=== PATIENT | male | born 1970 | race Hispanic/Latino ===

== ENCOUNTER 2018-06-10 07:26 | Inpatient (IN) | payer OTHER ==
[~2018-06-10] VITALS: Ht 177.8 cm; Wt 85.9 kg
[2018-06-10] MEDS ORDERED: SODIUM CHLORIDE 0.9% 1000ML 1,000 ML IV STA (07:59)
[2018-06-10] MEDS ORDERED: ONDANSETRON HCL INJ 2 MG/ML VIAL IV STA (07:59)
[2018-06-10] MEDS ORDERED: HYDROMORPHONE 1MG/1ML INJ IV STA ×2 (07:59→10:03)
[2018-06-10] MEDS ORDERED: HYDROMORPHONE 2MG/ML 2 MG/ML ML IV NR (08:15)
[2018-06-10 08:25] LABS: BASOPHILS # (AUTO) 0.1 (0.0-0.1); BASOPHILS % 0.7 % (0.0-1.0); EOSINOPHILS # (AUTO) 0.3 (0.0-0.4); EOSINOPHILS % 2.7 % (0.0-6.0); HEMATOCRIT 39.7 % (38.2-49.6); HEMOGLOBIN 13.9 g/dL (14.0-18.0); LYMPHOCYTES # (AUTO) 1.8 (1.0-3.2); LYMPHOCYTES % 15.6 % (18.0-39.1); MEAN CORPUSCULAR HEMOGLOBIN 31.5 pg (28-32); MONOCYTES # (AUTO) 0.5 (0.2-0.8); MONOCYTES % 4.6 % (4.4-11.3); NEUTROPHILS # (AUTO) 8.6 (2.1-6.9); PLATELET COUNT 221 x10e3/uL (140-360); RED BLOOD COUNT 4.41 x10e6/uL (4.3-5.7)
[2018-06-10 08:45] LABS: ALANINE AMINOTRANSFERASE 18 IU/L (0-55); ALBUMIN 4.2 g/dL (3.5-5.0); ALBUMIN/GLOBULIN RATIO 1.6 (0.8-2.0); ALKALINE PHOSPHATASE 56 IU/L (40-150); ANION GAP 10.5 mmol/L (8-16); BLOOD UREA NITROGEN 15 mg/dL (7-26); BUN/CREATININE RATIO 18 (6-25); CALCIUM 8.9 mg/dL (8.4-10.2); CARBON DIOXIDE 25 mmol/L (22-29); CHLORIDE 106 mmol/L (98-107); CREATININE, SERUM 0.85 mg/dL (0.72-1.25); EST GLOMERULAR FILTRATION RATE > 60 ML/MIN (60-); GLUCOSE 136 mg/dL (74-118); POTASSIUM 3.5 mmol/L (3.5-5.1); SODIUM 138 mmol/L (136-145)
[2018-06-10 09:01] LABS: INR 0.87; PROTHROMBIN TIME 12.7 seconds (11.9-14.5)
[2018-06-10 09:02] LABS: PARTIAL THROMBOPLASTIN TIME 31.4 seconds (23.8-35.5)
[2018-06-10] MEDS ORDERED: MELOXICAM7.5 MG PO (09:34)
[2018-06-10] MEDS ORDERED: CYCLOBENZAPRINE10 MG PO (09:34)
[2018-06-10] MEDS ORDERED: IOPAMIDOL 370 MG/ML 200 ML INFUS..BTL INJ ONE (10:07)
[2018-06-10] MEDS ORDERED: SODIUM CHLORIDE 0.9% 250ML 250 ML ONE (10:07)
[2018-06-10] MEDS ORDERED: HYDROMORPHONE 2MG/ML 2 MG/ML ML IV ONE (10:15)
[2018-06-10 10:23] LABS: BILIRUBIN,URINE NEGATIVE (NEGATIVE); CLARITY,URINE SL CLOUDY (CLEAR); COLOR,URINE YELLOW (YELLOW); KETONES,URINE NEGATIVE (NEGATIVE); LEUKOCYTE ESTERASE ,URINE NEGATIVE (NEGATIVE); NITRITE,URINE NEGATIVE (NEGATIVE); PROTEIN,URINE DIPSTICK NEGATIVE (NEGATIVE); URINE UROBILINOGEN 0.2 mg/dL (0.2 - 1)
[2018-06-10 10:24] LABS: EPITHELIAL CELLS,URINE FEW /LPF
--- NOTE | 2018-06-10 12:01 | Diagnostic Imaging Report ---
CORRECTION Corrected on: 06/10/2018; Dictated by: EZEQUIEL SEWELL M.D. on 06/10/2018 at 12:16 Electronically approved by: EZEQUIEL SEWELL M.D. on 06/10/2018 at 12:16 This report includes an Addendum and supersedes previous reports for this exam. PROCEDURE: CT ABDOMEN & PELVIS W/WO CONTRAST TECHNIQUE: The abdomen and pelvis were scanned utilizing a multidetector helical scanner from the diaphragm to the lesser trochanter before and after the IV administration of 100 cc of Isovue 370 and the oral administration of 900 cc of water. Coronal and sagittal multiplanar reformations were obtained. COMPARISON: None. INDICATIONS: RIGHT FLANK PAIN, HEMATURIA FINDINGS: LOWER THORAX: Normal. HEPATOBILIARY: No focal hepatic lesions. No biliary ductal dilatation. SPLEEN: No splenomegaly. PANCREAS: No focal masses or ductal dilatation. ADRENALS: No adrenal nodules. KIDNEYS/URETERS: Large right lower pole renal mass measuring up to 10 x 8.6 x 7.2 cm (AP x TV x SI). The mass is heterogeneous with central hypodensity, suggestive of necrosis. The mass likely arises from the renal parenchyma (for example on axial post contrast series 6, image 100) rather than urothelial system. Delayed excretion of contrast into the right renal collecting system and pelvis, likely secondary to mass effect. There is right perinephric stranding. Subcentimeter right upper pole renal hypodensities are too small to characterize. No hydronephrosis or stones. No definite urothelial lesion on delayed images although portions of the ureters bilaterally are not opacified. PELVIC ORGANS/BLADDER: The bladder is unremarkable in appearance. PERITONEUM / RETROPERITONEUM: No free air or fluid. LYMPH NODES: No lymphadenopathy. VESSELS: Unremarkable. GI TRACT: No distention or wall thickening. Small hiatal hernia. BONES AND SOFT TISSUES: No acute bony findings. No suspicious lytic or blastic lesions. IMPRESSION: Large heterogeneous centrally necrotic mass arising from the right lower pole kidney, suspicious for renal cell carcinoma. Mild left perinephric stranding which could reflect inflammatory changes or tumor involvement. No specific evidence of metastatic disease in the abdomen or pelvis. Dictated by: EZEQUIEL SEWELL M.D. on 06/10/2018 at 12:10 Electronically approved by: EZEQUIEL SEWELL M.D. on 06/10/2018 at 12:10 ADDENDUM: Mild dilatation of the right renal pelvis secondary to mass effect from the mass. No significant calyceal dilatation to suggest hydronephrosis. In addition, the initial impression stated that there is left perinephric stranding, this is incorrect. There is RIGHT perinephric stranding, which could reflect inflammatory changes or potentially tumor involvement. Dictated by: EZEQUIEL SEWELL M.D. on 06/10/2018 at 12:14 Electronically approved by: EZEQUIEL SEWELL M.D. on 06/10/2018 at 12:14
[2018-06-10] MEDS ORDERED: KETOROLAC TROMETHAMINE 30 MG/ML VIAL IV STA (12:02)
[2018-06-10] MEDS ORDERED: KETOROLAC TROMETHAMINE 30 MG/ML VIAL ONE (12:28)
--- OUTSIDE RECORDS SUMMARY | 2018-06-10 13:12 | XMS REPORT ---
[facility] Address Unknown Phone Unavailable Care Team Providers Care Packer Name Role Phone Jourdan DARLING Unavailable Unavailable Problems This patient has no known problems. Allergies, Adverse Reactions, Alerts This patient has no known allergies or adverse reactions. Medications This patient has no known medications. Results Test Description Test Time Test Comments Text Results Atomic Results Result Comments CT ABDOMEN/PELVIS WOW 2018-06-10 12:16:00 [place] [address] Patient Name: VINH KENDALL MR #: [id number] : 1970 Age/Sex: 47/M Req #: [id number] Adm Physician: Ordered by: ARIES DARLING MD Report #: [id number] Location: ER Room/Bed: Procedure: [id number] CT/CT ABDOMEN/PELVIS WOW Exam Date: 06/10/18 Exam Time: 1020 REPORT STATUS: Signed CORRECTION Corrected on: 06/10/2018; Dictated by: EZEQUIEL SEWELL M.D. on 06/10/2018 at 12:16 Electronically approved by: EZEQUIEL SEWELL M.D. on 06/10/2018 at 12:16 This report includes an Addendum and supersedes previous reports for this exam. PROCEDURE: CT ABDOMEN PELVIS W/WO CONTRAST TECHNIQUE: The abdomen and pelvis were scanned utilizing a multidetector helical scanner from the diaph ragm to the lesser trochanter before and after the IV administration of 100 cc of Isovue 370 and the oral administration of 900 cc of water. Coronal and sagittal multiplanar reformations were obtained. COMPARISON: None. INDICATIONS: RIGHT FLANK PAIN, HEMATURIA FINDINGS: LOWER THORAX: Normal. HEPATOBILIARY: No focal hepatic lesions. No biliary ductal dilatation. SPLEEN: No splenomegaly. PANCREAS: No focal masses or ductal dilatation. ADRENALS: No adrenal nodules. KIDNEYS/URETERS: Large right lower pole renal mass measuring up to 10 x 8.6 x 7.2 cm (AP x TV x SI). The mass is heterogeneous with central hypodensity, suggestive of necrosis. The mass likely arises from the renal parenchyma (for example on axial post contrast series 6, image 100) rather than urothelial system. Delayed excretion of contrast into the right renal collecting system and pelvis, likely secondary to mass effect. There is right perinephric stranding. Subcentimeter right upper pole renal hypodensities are too small to characterize. No hydronephrosis or stones. No definite urothelial lesion on delayed images although portions of the ureters bilaterally are not opacified. PELVIC ORGANS/BLADDER: The bladder is unremarkable in appearance. PERITONEUM / RETROPERITONEUM: No free air or fluid. LYMPH NODES: No lymphadenopathy. VESSELS: Unremarkable. GI TRACT: No distention or wall thickening. Small hiatal hernia. BONES AND SOFT TISSUES: No acute bony findings. No suspicious lytic or blastic lesions. IMPRESSION: Large heterogeneous centrally necrotic mass arising from the right lower pole kidney, suspicious for renal cell carcinoma. Mild left perinephric stranding which could reflect inflammatory changes or tumor involvement. No specific evidence of metastatic disease in the abdomen or pelvis. Dictated by: EZEQUIEL SEWELL M.D. on 06/10/2018 at 12:10 Electronically approved by: MELLISA SEWELL M.D. on 06/10/2018 at 12:10 ADDENDUM: Mild dilatation of the right renal pelvis secondary to mass effect from the mass. No significant calyceal dilatation to suggest hydronephrosis. In addition, the initial impression stated that there is left perinephric stranding, this is incorrect. There is RIGHT perinephric stranding, which could reflect inflammatory changes or potentially tumor involvement. Dictated by: EZEQUIEL SEWELL M.D. on 06/10/2018 at 12:14 Electronically approved by: EZEQUIEL SEWELL M.D. on 06/10/2018 at 12:14 Dictated By: EZEQUIEL SEWELL MD [id number] Transcribed By: ADELA on 06/10/186 COPY TO: ARIES DARLING MD
[2018-06-10] MEDS ORDERED: HYDROMORPHONE 1MG/1ML INJ IV PRN (13:15)
[2018-06-10] MEDS ORDERED: ONDANSETRON HCL INJ 2 MG/ML VIAL IV PRN (13:15)
[2018-06-10] MEDS ORDERED: HYDROMORPHONE 2MG/ML 2 MG/ML ML IV PRN (13:15)
[2018-06-10] MEDS: SODIUM CHLORIDE 0.9% 1000ML 1,000 ML IV SCH ×2 (14:45→21:15)
--- NOTE | 2018-06-10 16:03 | Consultation ---
DATE OF CONSULTATION: June 10, 2018 UROLOGY CONSULTATION REASON FOR CONSULTATION: Hematuria and renal mass. HISTORY OF PRESENT ILLNESS: Nolbe Rivero is a 47-year-old man without any previous urological history. The patient actually had an appointment to see us in the office today. However, he had severe right-sided flank pain and reported to the emergency room instead. The patient was evaluated and found to have a large right renal mass, suspicious for renal cell carcinoma and he was subsequently admitted. The patient reports gross hematuria this morning. He denies other episodes of hematuria. He denies dysuria and denies urinary tract infections. He denies any ureterolithiasis. PAST MEDICAL AND SURGICAL HISTORY: Status post tonsillectomy. CURRENT MEDICATIONS: Normally none. ALLERGIES: NO KNOWN DRUG ALLERGIES. SOCIAL HISTORY: The patient smokes only when he drinks. He denies daily smoking, ethanol or drug use. The patient has supportive at the bedside. His occupation is [employer] work. REVIEW OF SYSTEMS: As discussed above in the history of present illness and past medical history, otherwise negative for all systems. PHYSICAL EXAMINATION GENERAL: A healthy-appearing 47-year-old man lying in bed in no apparent distress. He is currently afebrile. VITAL SIGNS: Currently stable. ABDOMEN: Soft, nondistended, nontender except slight right-sided costovertebral angle tenderness. Kidneys are not palpable without hepatosplenomegaly. No obvious evidence of hernia. GENITOURINARY: Testes descended bilaterally. Testes and epididymides bilaterally palpably normal. The patient has a normal, uncircumcised male phallus with normal meatus without any lesions. RECTAL: Digital rectal examination is deferred at the present time. For the remaining physical examination systems, please refer to the admission history and physical on the chart. LABORATORY DATA: CT scan of the abdomen and pelvis revealed a 10 cm x 8.6 cm x 7.2 cm necrotic heterogenous lower pole renal mass causing distortion of the collecting system. White blood cell count is 11,350. Hemoglobin low at 13.9. Platelets are normal at 221,000. The patient's creatinine is normal at 0.85. Urinalysis significant for 11-20 RBCs. ASSESSMENT 1. Right renal mass consistent with renal cell carcinoma. 2. Gross hematuria. 3. Right renal colic. 4. Leukocytosis . 5. Anemia. PLAN: 1. Admit for pain control. 2. The patient will need a right radical nephrectomy. Once the patient has adequate pain control, that procedure could potentially be done electively. Thank you very much for involving us in the care of your patient. I will be able to follow him along with you as well as an outpatient. Job#: [id number] cc:SON BURGESS M.D.
--- NOTE | 2018-06-10 16:15 | Diagnostic Imaging Report ---
EXAM: XR CHEST 2 VIEWS DATE: 06/10/2018 3:23 PM INDICATION: Renal mass COMPARISON: None FINDINGS: Lines and Tubes: None Heart and Mediastinum: No acute cardiomediastinal findings. Lungs and Pleura: No significant pleural effusion, pneumothorax, or focal consolidation. Bones and Soft Tissues: No acute findings. IMPRESSION: 1. No acute cardiopulmonary findings. If concern present for metastatic disease, CT chest would be recommended. Signed by: Dr. Tim Jordan MD on 06/10/2018 4:12 PM
[2018-06-10 21:30] VITALS: BP 123/74
[2018-06-11] VITALS (7 sets, daily range): BP systolic 116–157; BP diastolic 71–95
[2018-06-11] MEDS: SODIUM CHLORIDE 0.9% 1000ML 1,000 ML IV SCH ×2 (00:57→12:33)
[2018-06-11 05:15] LABS: BASOPHILS % 0.4 % (0.0-1.0); EOSINOPHILS # (AUTO) 0.1 (0.0-0.4); EOSINOPHILS % 1.3 % (0.0-6.0); HEMATOCRIT 35.3 % (38.2-49.6); HEMOGLOBIN 12.3 g/dL (14.0-18.0); LYMPHOCYTES % 23.9 % (18.0-39.1); MEAN CORPUSCULAR HEMOGLOBIN 31.5 pg (28-32); MEAN CORPUSCULAR HGB CONC 34.8 g/dL (31-35); MEAN CORPUSCULAR VOLUME 90.3 fL (81-99); MONOCYTES # (AUTO) 0.6 (0.2-0.8); MONOCYTES % 7.3 % (4.4-11.3); NEUTROPHILS # (AUTO) 5.6 (2.1-6.9); NEUTROPHILS % 66.7 % (38.7-80.0); PLATELET COUNT 198 x10e3/uL (140-360); RED BLOOD COUNT 3.91 x10e6/uL (4.3-5.7); RED CELL DISTRIBUTION WIDTH 12.4 % (11.7-14.4)
[2018-06-11 05:35] LABS: ANION GAP 11.7 mmol/L (8-16); BLOOD UREA NITROGEN 10 mg/dL (7-26); BUN/CREATININE RATIO 13 (6-25); CALCIUM 7.7 mg/dL (8.4-10.2); CARBON DIOXIDE 24 mmol/L (22-29); CHLORIDE 105 mmol/L (98-107); CREATININE, SERUM 0.79 mg/dL (0.72-1.25); EST GLOMERULAR FILTRATION RATE > 60 ML/MIN (60-); GLUCOSE 101 mg/dL (74-118); POTASSIUM 3.7 mmol/L (3.5-5.1); SODIUM 137 mmol/L (136-145)
[2018-06-11] MEDS ORDERED: HYDRALAZINE HCL 20 MG/ML VIAL IV PRN (08:00)
[2018-06-11] MEDS: FAMOTIDINE 20 MG TAB PO SCH ×2 (09:31→16:00)
[2018-06-11] MEDS: OYST-CAL-D 500MG TABLET PO SCH ×2 (09:31→16:00)
[2018-06-11] MEDS ORDERED: PEG (High)/E-LYTE SOLN 4,000 ML BTL PO NR (12:00)
--- NOTE | 2018-06-11 14:16 | Diagnostic Imaging Report ---
PROCEDURE: CT scan of the chest WITH intravenous contrast, using standard protocol. TECHNIQUE: The chest was scanned utilizing a multidetector helical scanner from the lung apex through the level of the adrenal glands after the IV administration of 100 cc of Isovue 370. Coronal and sagittal multiplanar reformations were obtained. COMPARISON: None. INDICATIONS: RENAL CARCINOMA, evaluate for lung metastasis FINDINGS: Lines/tubes: None. Lungs and Airways: No pulmonary nodules, masses, or consolidation. Airways are clear without endobronchial lesions. Pleura: The pleural spaces are clear. Heart and mediastinum: Thyroid is unremarkable. Mild cardiomegaly. No pericardial effusion. Aorta is non-aneurysmal. The main pulmonary artery is normal in caliber. Lymph nodes: The mediastinum, supraclavicular, or, internal mammary hilar, or axillary adenopathy. Abdomen: Limited contrast-enhanced views of the upper abdomen show no abnormality within the visualized liver, spleen, pancreas, or left kidney. Trace perinephric fluid in the right superior pole . The adrenal glands are unremarkable. Bones: No aggressive lytic or sclerotic lesions. Soft tissues are grossly unremarkable. IMPRESSION: 1. No evidence of metastatic disease in the thorax. 2. Mild cardiomegaly. 3. Trace perinephric fluid in the right superior pole. Theodore Churchill M.D. Dictated by: Theodore Churchill M.D. on 06/11/2018 at 14:25 Electronically approved by: Theodore Churchill M.D. on 06/11/2018 at 14:25
[2018-06-11] MEDS ORDERED: IOPAMIDOL 370 MG/ML 200 ML INFUS..BTL INJ ONE (17:07)
[2018-06-11] MEDS ORDERED: SODIUM CHLORIDE 0.9% 50ML 50 ML ONE (17:07)
[2018-06-11] MEDS ORDERED: DEXTROSE 50% SYRINGE 50 ML IV PRN ×2 (17:15)
[2018-06-11] MEDS ORDERED: INSULIN LISPRO 100 UNIT/1 ML 3ML VIAL SQ SCH ×2 (21:00)
[2018-06-12 00:16] VITALS: BP 147/96
[2018-06-12 04:00] VITALS: BP 154/90
[2018-06-12] MEDS: SODIUM CHLORIDE 0.9% 1000ML 1,000 ML IV SCH (05:02)
[2018-06-12 05:06] LABS: BASOPHILS % 0.6 % (0.0-1.0); EOSINOPHILS # (AUTO) 0.3 (0.0-0.4); EOSINOPHILS % 4.5 % (0.0-6.0); HEMATOCRIT 35.7 % (38.2-49.6); HEMOGLOBIN 12.3 g/dL (14.0-18.0); LYMPHOCYTES % 30.2 % (18.0-39.1); MEAN CORPUSCULAR HEMOGLOBIN 31.4 pg (28-32); MEAN CORPUSCULAR HGB CONC 34.5 g/dL (31-35); MEAN CORPUSCULAR VOLUME 91.1 fL (81-99); MONOCYTES # (AUTO) 0.6 (0.2-0.8); NEUTROPHILS # (AUTO) 3.7 (2.1-6.9); NEUTROPHILS % 55.5 % (38.7-80.0); PLATELET COUNT 189 x10e3/uL (140-360); RED BLOOD COUNT 3.92 x10e6/uL (4.3-5.7); RED CELL DISTRIBUTION WIDTH 12.1 % (11.7-14.4)
[2018-06-12 05:35] LABS: % IRON SATURATION 34 % (15-50); ANION GAP 13.5 mmol/L (8-16); BLOOD UREA NITROGEN 7 mg/dL (7-26); BUN/CREATININE RATIO 10 (6-25); CARBON DIOXIDE 24 mmol/L (22-29); CHLORIDE 104 mmol/L (98-107); CREATININE, SERUM 0.69 mg/dL (0.72-1.25); EST GLOMERULAR FILTRATION RATE > 60 ML/MIN (60-); GLUCOSE 93 mg/dL (74-118); IRON 88 ug/dL (65-175); MAGNESIUM 2.1 MG/DL (1.3-2.1); POTASSIUM 3.5 mmol/L (3.5-5.1); SODIUM 138 mmol/L (136-145); TOTAL IRON BINDING CAPACITY 259 ug/dL (261-478); TRANSFERRIN 185 mg/dL (174-364)
[2018-06-12 05:57] LABS: FERRITIN 250.89 ng/mL (21.81-274.66)
[2018-06-12 06:00] LABS: ALBUMIN 3.7 g/dL (3.5-5.0); BILIRUBIN,DIRECT 0.4 mg/dL (0.0-0.5)
[2018-06-12 07:03] LABS: FOLATE 18.1 ng/mL (7.0-15.4)
[2018-06-12] MEDS: FAMOTIDINE 20 MG TAB PO SCH ×2 (07:30→16:30)
[2018-06-12 07:48] VITALS: BP 140/91
[2018-06-12 07:53] VITALS: BP 140/91
[2018-06-12] MEDS ORDERED: CEFAZOLIN SOD 1 GM VIAL ONE (08:27)
[2018-06-12] MEDS: OYST-CAL-D 500MG TABLET PO SCH ×2 (09:00→17:00)
[2018-06-12] MEDS ORDERED: CEFAZOLIN SOD 2 GM/D5W 50ML 50 ML IV ONE (09:09)
[2018-06-12] MEDS ORDERED: IOPAMIDOL 610MG/1ML 300 MG/ML VIAL IV ONE ×2 (09:18→09:47)
[2018-06-12] MEDS ORDERED: HYDROMORPHONE 2MG/ML 2 MG/ML ML ONE (12:31)
[2018-06-12] MEDS: SODIUM CHLORIDE 0.9% 250ML IRRIG IR SCH ×3 (12:45→20:45)
[2018-06-12] MEDS ORDERED: NALOXONE HCL INJ 0.4 MG/ML AMP IV PRN (12:45)
[2018-06-12] MEDS ORDERED: ONDANSETRON HCL INJ 2 MG/ML VIAL IV PRN (12:45)
[2018-06-12] MEDS ORDERED: DIPHENHYDRAMINE HCL INJ 50 MG/ML VIAL IM PRN (12:45)
[2018-06-12] MEDS: MORPHINE SULFATE 1 MG/ML 30ML PCA IV PRN (13:12)
[2018-06-12] MEDS ORDERED: HYDRALAZINE HCL 20 MG/ML VIAL ONE (13:21)
[2018-06-12] MEDS ORDERED: CEFAZOLIN SOD 1 GM/D5W 50ML 50 ML IV SCH (14:00)
--- NOTE | 2018-06-12 14:15 | Diagnostic Imaging Report ---
ADDENDUM #1 Addendum: Addendum was requested by the referring physician Dr. Wakefield specifying size of the right pneumothorax. Small right apical pneumothorax, air gap approximately 1 cm. Findings were discussed by telephone with Dr. Wakefield's office at approximately 2:30 PM on 06/12/2018. Signed by: Dr. Nick Corcoran M.D. on 06/12/2018 2:45 PM ORIGINAL REPORT Examination: Single AP view of the chest. COMPARISON: None. INDICATION: Evaluate for pneumothorax DISCUSSION: Lines/tubes: None. Lungs: The lungs are well inflated and clear. No pneumonia or pulmonary edema. Pleura: Right pneumothorax and additional lucency along the mediastinal contour on the left. Heart and mediastinum: The heart and the mediastinum are unremarkable. Bones and soft tissues: No acute bony abnormalities. Lucency under the diaphragm extending across the midline. IMPRESSION: 1. Right pneumothorax. 2. Free abdominal air. Patient is postoperative from nephrectomy per the patient's floor nurse. Dr. Nguyen's PA Avery notified at 2:11pm Signed by: Dr. King Alvarez M.D. on 06/12/2018 2:12 PM
[2018-06-12] MEDS: D5.45%NS/KCL 20MEQ 1,000 ML IV SCH ×2 (16:46)
[2018-06-12] MEDS: DOCUSATE SODIUM 100 MG CAP PO SCH (17:00)
[2018-06-12] MEDS ORDERED: NEOSTIGMINE 5 MG/5ML SYR ONE (17:15)
[2018-06-12] MEDS ORDERED: ROCURONIUM BROMIDE 10 MG/ML 5ML VIAL ONE (17:15)
[2018-06-12] MEDS ORDERED: PROPOFOL IV EMULSION 10 MG/ML 20 ML VIAL ONE (17:15)
[2018-06-12] MEDS ORDERED: GLYCOPYRROLATE INJ 1MG/ 5 ML SYR ONE (17:15)
[2018-06-12] MEDS ORDERED: SEVOFLURANE INHAL SOLN 250 ML PEN BTL ONE (17:15)
[2018-06-12] MEDS ORDERED: ONDANSETRON HCL INJ 2 MG/ML VIAL ONE (17:15)
[2018-06-12] MEDS ORDERED: DEXAMETHASONE SOD PHOS INJ 4 MG/ML VIAL ONE (17:15)
[2018-06-12] MEDS ORDERED: LIDOCAINE HCL 2% LOCAL INJ 5 ML SDV VIAL INJ ONE (17:15)
[2018-06-12] MEDS ORDERED: MIDAZOLAM HCL 2 MG/2 ML VIAL ONE (17:27)
[2018-06-12] MEDS ORDERED: FENTANYL CITRATE/PF 100MCG/2 ML INJ ONE (17:27)
[2018-06-12] MEDS: CEFAZOLIN SOD 1 GM VIAL IV SCH (18:20)
[2018-06-12 20:29] VITALS: BP 147/88
[2018-06-13] VITALS (7 sets, daily range): BP systolic 107–159; BP diastolic 48–88
[2018-06-13] MEDS: CEFAZOLIN SOD 1 GM VIAL IV SCH ×3 (00:18→17:59)
[2018-06-13] MEDS: SODIUM CHLORIDE 0.9% 250ML IRRIG IR SCH ×6 (00:20→20:45)
[2018-06-13] MEDS: D5.45%NS/KCL 20MEQ 1,000 ML IV SCH (05:00)
[2018-06-13 05:21] LABS: BASOPHILS % 0.2 % (0.0-1.0); EOSINOPHILS % 0.2 % (0.0-6.0); HEMATOCRIT 37.4 % (38.2-49.6); HEMOGLOBIN 12.7 g/dL (14.0-18.0); LYMPHOCYTES # (AUTO) 1.5 (1.0-3.2); LYMPHOCYTES % 14.4 % (18.0-39.1); MEAN CORPUSCULAR HEMOGLOBIN 30.8 pg (28-32); MEAN CORPUSCULAR VOLUME 90.8 fL (81-99); MONOCYTES # (AUTO) 0.6 (0.2-0.8); MONOCYTES % 6.3 % (4.4-11.3); NEUTROPHILS # (AUTO) 7.9 (2.1-6.9); NEUTROPHILS % 78.6 % (38.7-80.0); PLATELET COUNT 197 x10e3/uL (140-360); RED BLOOD COUNT 4.12 x10e6/uL (4.3-5.7); RED CELL DISTRIBUTION WIDTH 12.2 % (11.7-14.4)
[2018-06-13 05:54] LABS: ANION GAP 10.6 mmol/L (8-16); BLOOD UREA NITROGEN 9 mg/dL (7-26); BUN/CREATININE RATIO 8 (6-25); CALCIUM 7.7 mg/dL (8.4-10.2); CARBON DIOXIDE 24 mmol/L (22-29); CHLORIDE 99 mmol/L (98-107); CREATININE, SERUM 1.06 mg/dL (0.72-1.25); EST GLOMERULAR FILTRATION RATE > 60 ML/MIN (60-); GLUCOSE 123 mg/dL (74-118); MAGNESIUM 1.8 MG/DL (1.3-2.1); POTASSIUM 3.6 mmol/L (3.5-5.1); SODIUM 130 mmol/L (136-145)
--- NOTE | 2018-06-13 07:27 | Operative Report ---
DATE OF PROCEDURE: June 12, 2018 PREOPERATIVE DIAGNOSES: 1. Large right renal mass consistent with renal cell carcinoma. 2. Gross hematuria. POSTOPERATIVE DIAGNOSES: 1. Large right renal mass consistent with renal cell carcinoma. 2. Gross hematuria. 3. 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 OPERATIONS PERFORMED: 1. Cystourethroscopy with calibration and dilation of urethral stricture located at the region of the external urinary sphincter. 2. Cystourethroscopy with bilateral ureteral catheterization and retrograde ureteropyelography (separate procedure performed for the hematuria). 3. Interpretation of retrograde ureteropyelography. 4. Supervision of fluoroscopy, no radiologist present. 5. Complicated right radical nephrectomy, made complicated by the large 10 cm tumor in the surrounding new vascularity. COPPER PLATE PRINTER: Dr. Reji Wakefield MD COMPLICATIONS: None. CLINICAL SUMMARY: Please refer to consultation from this hospitalization. OPERATIVE PROCEDURE IN DETAIL: Informed consent was verified. Noble Rivero was properly identified, taken to the operating room, and placed on the cystoscopy table in supine position. Anesthesia was uneventfully begun. The patient was then carefully and gently repositioned in a dorsal lithotomy position with all pressure points well padded. His genitalia were prepared and draped in the usual sterile fashion. The 21-Northern Irish cystoscope sheath with the visual obturator in place was atraumatically inserted into the patient's urethra. It was guided down the unremarkable distal urethra to the sphincteric region. There seemed to be some mild inflammation over the sphincteric region and sphincteric region was rather tight. We dilated it to the scope with the visual obturator in place. This may be a clinically significant stricture. There seemed to be minimal mucosal inflammation at that point. We went through the prostate bed, which was otherwise relatively unremarkable. We entered the patient's bladder where panendoscopy revealed no suspicious mucosal lesions, no tumors, no stones, no diverticula. Grade 1 trabeculations were noted. An 8-Northern Irish catheter was used to cannulate each ureter, and retrograde ureteral pyelograms were performed. Interpretation of retrograde ureteropyelography: Contrast was instilled in retrograde fashion bilaterally. On the left hand side, there were no tumors, no stones, no diverticula. Unobstructed drainage was observed fluoroscopically. On the right hand side, there was distortion of the collecting system by the large mass in the lower pole. The collecting system was stretched out, but there were no obvious mucosal lesions that could be appreciated. Unobstructed drainage was observed on the right hand side as well. The cystoscope was withdrawn. Caldwell catheter was placed. It was irrigated to and fro to ensure it worked properly. Digital rectal examination revealed relatively small 20 g prostate smooth, non-fluctuant, and without any nodules. Following cystoscopic portion of the procedure, the patient was carefully and gently transported across the lobo to the open operating room where he was carefully and gently repositioned in a flank position with all pressure points carefully well padded. His chest, abdomen, and back were shaved, prepared and draped in usual sterile fashion. A right flank incision was made, carried through all layers of the abdominal and chest wall. The 12th rib was rather sizable. As we resected the 12th rib posterolaterally, the pleura was unavoidably entered. Pleura was adherent to the posterior surface of that rib and was very thin and could not be . Once the rib was resected, we reapproximated the pleurotomy with 2-0 Vicryl suture in running fashion using anesthesia's help in hyperventilating and hyperinflating as well as the small red rubber catheter in order to evacuate the pneumothorax to the best of our ability. This pneumothorax was intentional as the pleura was adherent to the posterior surface of this larger than usual 12th rib. We carefully and gently isolated the kidney. We worked posteriorly. We found 2 large arterial branches that were doubly ligated and divided. We then identified 2 main renal vein branches, which we also doubly ligated and divided. We then were able to isolate the remainder of the kidney and eventually ligated and divided the ureter as well as all of their attachments, and specimen was removed from the field. The adrenal was not visualized within the specimen and we believed that it was preserved within the cephalad portion of Gerota's fascia. The nephrectomy was made more complicated by the large size of this tumor, which was 10 cm as measured by CT scanning. Copious irrigation was performed. We verified hemostasis. The patient's incision was then approximated in layers utilizing interrupted heavy Vicryl suture in figure-of-8 fashion, and the skin was approximated with skin seth. Sterile dressings were applied, and the patient was uneventfully reversed from anesthesia and taken to recovery room in stable condition. There were no complications to the procedure. He tolerated the procedure well. Plans will be to proceed with routine postoperative care and of course lifelong urological followup. Job#: [id number] cc: SON BURGESS M.D. MTDEdouard
[2018-06-13] MEDS: FAMOTIDINE 20 MG TAB PO SCH ×2 (07:30→16:30)
[2018-06-13] MEDS: DOCUSATE SODIUM 100 MG CAP PO SCH ×2 (09:00→17:00)
[2018-06-13] MEDS: OYST-CAL-D 500MG TABLET PO SCH ×2 (09:00→17:00)
[2018-06-13] MEDS: SODIUM CHLORIDE 0.9% 1000ML 1,000 ML IV SCH ×2 (09:00→19:00)
[2018-06-13] MEDS ORDERED: CALCIUM GLUCONATE 10% INJ 9.3 MEQ in SODIUM CHLORIDE 0.9% 100 ML 100 ML IV ONE (09:15)
--- NOTE | 2018-06-13 09:54 | Diagnostic Imaging Report ---
PROCEDURE: X-RAY CHEST, single VIEWS COMPARISON: 06/12/2018. INDICATIONS: R/O PTX FINDINGS: Enteric tube tip projects over the expected region of the gastric body. Small right apical pneumothorax has decreased in size compared to 06/12/2018, with air gap now 8 mm. No new consolidation or effusion. Postoperative pneumoperitoneum with multiple surgical clips projecting over the right paravertebral region of the upper lumbar spine. Surgical seth along the right flank. No acute osseous abnormality. CONCLUSION: Resolving small right apical pneumothorax. Persistent postoperative pneumoperitoneum status post right nephrectomy. Dictated by: Nick Corcoran M.D. on 06/13/2018 at 10:03 Electronically approved by: Nick Corcoran M.D. on 06/13/2018 at 10:03
[2018-06-13] MEDS: MORPHINE SULFATE 1 MG/ML 30ML PCA IV PRN (11:40)
[2018-06-13 14:45] LABS: BASOPHILS % 0.3 % (0.0-1.0); EOSINOPHILS # (AUTO) 0.1 (0.0-0.4); EOSINOPHILS % 0.6 % (0.0-6.0); HEMATOCRIT 37.3 % (38.2-49.6); HEMOGLOBIN 12.9 g/dL (14.0-18.0); LYMPHOCYTES # (AUTO) 1.2 (1.0-3.2); LYMPHOCYTES % 9.8 % (18.0-39.1); MEAN CORPUSCULAR HEMOGLOBIN 31.6 pg (28-32); MEAN CORPUSCULAR HGB CONC 34.6 g/dL (31-35); MEAN CORPUSCULAR VOLUME 91.4 fL (81-99); MONOCYTES # (AUTO) 0.9 (0.2-0.8); MONOCYTES % 7.1 % (4.4-11.3); NEUTROPHILS # (AUTO) 9.8 (2.1-6.9); NEUTROPHILS % 81.9 % (38.7-80.0); PLATELET COUNT 186 x10e3/uL (140-360); RED BLOOD COUNT 4.08 x10e6/uL (4.3-5.7); RED CELL DISTRIBUTION WIDTH 12.2 % (11.7-14.4)
[2018-06-13 15:10] LABS: ANION GAP 12.6 mmol/L (8-16); BLOOD UREA NITROGEN 8 mg/dL (7-26); BUN/CREATININE RATIO 7 (6-25); CALCIUM 8.1 mg/dL (8.4-10.2); CARBON DIOXIDE 22 mmol/L (22-29); CHLORIDE 98 mmol/L (98-107); EST GLOMERULAR FILTRATION RATE > 60 ML/MIN (60-); GLUCOSE 104 mg/dL (74-118); POTASSIUM 3.6 mmol/L (3.5-5.1); SODIUM 129 mmol/L (136-145)
[2018-06-13] MEDS: PIPER-TAZ 3.375 GM 50 ML IV SCH (22:00)
[2018-06-14] VITALS (7 sets, daily range): BP systolic 128–144; BP diastolic 70–84
[2018-06-14] MEDS: SODIUM CHLORIDE 0.9% 250ML IRRIG IR SCH ×4 (00:45→12:45)
[2018-06-14] MEDS: SODIUM CHLORIDE 0.9% 1000ML 1,000 ML IV SCH ×2 (04:45→13:46)
[2018-06-14 05:39] LABS: BASOPHILS # (AUTO) 0.1 (0.0-0.1); BASOPHILS % 0.4 % (0.0-1.0); EOSINOPHILS # (AUTO) 0.1 (0.0-0.4); EOSINOPHILS % 0.8 % (0.0-6.0); HEMATOCRIT 37.9 % (38.2-49.6); HEMOGLOBIN 12.8 g/dL (14.0-18.0); LYMPHOCYTES # (AUTO) 1.1 (1.0-3.2); LYMPHOCYTES % 9.5 % (18.0-39.1); MEAN CORPUSCULAR HEMOGLOBIN 31.1 pg (28-32); MEAN CORPUSCULAR HGB CONC 33.8 g/dL (31-35); MONOCYTES # (AUTO) 1.1 (0.2-0.8); MONOCYTES % 8.9 % (4.4-11.3); NEUTROPHILS # (AUTO) 9.6 (2.1-6.9); NEUTROPHILS % 80.1 % (38.7-80.0); PLATELET COUNT 185 x10e3/uL (140-360); RED BLOOD COUNT 4.12 x10e6/uL (4.3-5.7); RED CELL DISTRIBUTION WIDTH 12.2 % (11.7-14.4)
[2018-06-14] MEDS: PIPER-TAZ 3.375 GM 50 ML IV SCH ×3 (05:45→22:00)
[2018-06-14 06:17] LABS: ANION GAP 14.9 mmol/L (8-16); BLOOD UREA NITROGEN 9 mg/dL (7-26); BUN/CREATININE RATIO 8 (6-25); CALCIUM 8.4 mg/dL (8.4-10.2); CARBON DIOXIDE 23 mmol/L (22-29); CHLORIDE 100 mmol/L (98-107); CREATININE, SERUM 1.19 mg/dL (0.72-1.25); EST GLOMERULAR FILTRATION RATE > 60 ML/MIN (60-); GLUCOSE 90 mg/dL (74-118); MAGNESIUM 2.1 MG/DL (1.3-2.1); POTASSIUM 3.9 mmol/L (3.5-5.1); SODIUM 134 mmol/L (136-145)
[2018-06-14] MEDS: FAMOTIDINE 20 MG TAB PO SCH ×2 (07:30→17:19)
[2018-06-14] MEDS: DOCUSATE SODIUM 100 MG CAP PO SCH ×3 (08:49→17:19)
[2018-06-14] MEDS: OYST-CAL-D 500MG TABLET PO SCH ×2 (08:49→17:19)
[2018-06-14] MEDS ORDERED: BISACODYL 10 MG SUPP PR PRN (09:30)
[2018-06-14] MEDS ORDERED: ACETAMINOPHEN/CODEINE 300MG - 30MG TAB PO PRN (09:30)
[2018-06-14] MEDS ORDERED: BISACODYL 10 MG SUPP PR NR (10:00)
[2018-06-14] MEDS: VANCOMYCIN 1GM/NS 250 ML 250 ML IV SCH (10:25)
--- NOTE | 2018-06-14 10:44 | Diagnostic Imaging Report ---
PROCEDURE: X-RAY CHEST, TWO VIEWS COMPARISON: [facility], DX, CHEST 2 VIEWS, 06/13/2018, 9:22. INDICATIONS: PNEUMOTHORAX FINDINGS: LUNGS: Bibasilar atelectasis. PLEURA: Right apical pneumothorax has increased in size now measuring 2.7 cm. HEART & MEDIASTINUM: The heart is within normal size-limits. BONES & SOFT TISSUES: Large postoperative pneumoperitoneum persists. CONCLUSION: 1. Bibasilar atelectasis. 2. Pneumoperitoneum persists. 3. Right pneumothorax has increased in size. Raimundo Cabral D.O. Dictated by: Raimundo Cabral D.O. on 06/14/2018 at 10:53 Electronically approved by: Raimundo Cabral D.O. on 06/14/2018 at 10:53
[2018-06-14] MEDS ORDERED: FENTANYL CITRATE/PF 100MCG/2 ML INJ ONE (13:41)
[2018-06-14] MEDS ORDERED: MIDAZOLAM HCL 2 MG/2 ML VIAL ONE (13:41)
[2018-06-14] MEDS ORDERED: LIDOCAINE HCL 1% LOCAL INJ 20 ML VIAL ONE (14:39)
--- NOTE | 2018-06-14 15:55 | Diagnostic Imaging Report ---
EXAM: CT Chest and Chest Tube placement: 06/14/2018 INDICATION: Postoperative pneumothorax following right nephrectomy COMPARISON: Chest x-ray performed on 06/14/2018 TECHNIQUE: Chest was scanned utilizing a multidetector helical scanner from the lung apex through the level of the adrenal glands without IV contrast. Coronal and sagittal reformations were obtained. Routine protocol was performed. CT was then utilized for guidance and placement of an anterior chest tube. RADIATION DOSE: Total DLP: 1652.18 mGy*cm Estimated effective dose: (DLP x 0.014 x size factor) mSv COMPLICATIONS: None FINDINGS: LINES/ TUBES: None. LUNGS AND AIRWAYS: Right lower lobe airspace opacity with air bronchograms represents either atelectasis or consolidation. Soft tissue within the right lateral aspect of the trachea likely represents secretions. PLEURA: There is a small-moderate right pleural effusion approximating 30% in size. Small bilateral pleural effusions. HEART AND MEDIASTINUM: The thyroid gland is normal. No mediastinal, hilar or axillary lymphadenopathy. The heart is normal in size.. There is no pericardial effusion. UPPER ABDOMEN: Pneumoperitoneum is noted. BONES: The visualized bony thorax is within normal limits. SOFT TISSUES: Minimal soft tissue air related to surgery. CHEST TUBE PLACEMENT: An appropriate location in the anterior chest was determined for placement of a chest tube. Local anesthesia with 1% Xylocaine was administered. A 5 Ethiopian Yueh catheter was then advanced into the pneumothorax followed by aspiration of air. A 0.0 3 5-in. Amplatz superstiff wire was then advanced through the Yueh catheter. Dilatation with an 8 Ethiopian dilator was accomplished. An 8 Ethiopian locking: Loop all-purpose drainage catheter was then placed into the anterior pleural space. The pneumothorax was evacuated with wall suction. Patient tolerated procedure well. Medications: Patient received 50 mg of Fentanyl IV at the start of the procedure. He was continuously monitored throughout. IMPRESSION: 1. CT scan revealing a right anterior pneumothorax approximating 30%. 2. CT guidance for chest tube placement. Signed by: Dr. Raimundo Cabral DO on 06/14/2018 3:51 PM
[2018-06-14] MEDS: ACETAMINOPHEN 325 MG TAB PO PRN (19:24)
[2018-06-15] VITALS (9 sets, daily range): BP systolic 141–169; BP diastolic 84–97
[2018-06-15] MEDS: SODIUM CHLORIDE 0.9% 1000ML 1,000 ML IV SCH ×2 (00:24→10:15)
[2018-06-15 05:33] LABS: BASOPHILS % 0.3 % (0.0-1.0); EOSINOPHILS # (AUTO) 0.1 (0.0-0.4); EOSINOPHILS % 1.2 % (0.0-6.0); HEMATOCRIT 35.2 % (38.2-49.6); HEMOGLOBIN 11.9 g/dL (14.0-18.0); LYMPHOCYTES # (AUTO) 0.7 (1.0-3.2); LYMPHOCYTES % 7.3 % (18.0-39.1); MEAN CORPUSCULAR HEMOGLOBIN 30.9 pg (28-32); MEAN CORPUSCULAR HGB CONC 33.8 g/dL (31-35); MEAN CORPUSCULAR VOLUME 91.4 fL (81-99); MONOCYTES # (AUTO) 0.9 (0.2-0.8); MONOCYTES % 9.1 % (4.4-11.3); NEUTROPHILS # (AUTO) 8.3 (2.1-6.9); NEUTROPHILS % 81.7 % (38.7-80.0); PLATELET COUNT 187 x10e3/uL (140-360); RED BLOOD COUNT 3.85 x10e6/uL (4.3-5.7); RED CELL DISTRIBUTION WIDTH 12.1 % (11.7-14.4)
[2018-06-15] MEDS: ACETAMINOPHEN 325 MG TAB PO PRN (05:47)
[2018-06-15 05:55] LABS: ANION GAP 14.6 mmol/L (8-16); BLOOD UREA NITROGEN 11 mg/dL (7-26); BUN/CREATININE RATIO 11 (6-25); CALCIUM 8.3 mg/dL (8.4-10.2); CARBON DIOXIDE 23 mmol/L (22-29); CHLORIDE 101 mmol/L (98-107); CREATININE, SERUM 1.04 mg/dL (0.72-1.25); EST GLOMERULAR FILTRATION RATE > 60 ML/MIN (60-); GLUCOSE 129 mg/dL (74-118); POTASSIUM 3.6 mmol/L (3.5-5.1); SODIUM 135 mmol/L (136-145)
[2018-06-15] MEDS: PIPER-TAZ 3.375 GM 50 ML IV SCH ×3 (06:10→21:29)
[2018-06-15] MEDS: VANCOMYCIN 1GM/NS 250 ML 250 ML IV SCH (08:44)
[2018-06-15] MEDS: DOCUSATE SODIUM 100 MG CAP PO SCH ×2 (08:44→17:02)
[2018-06-15] MEDS: OYST-CAL-D 500MG TABLET PO SCH ×2 (08:44→17:02)
[2018-06-15] MEDS: FAMOTIDINE 20 MG TAB PO SCH ×2 (08:44→17:02)
[2018-06-15] MEDS ORDERED: CHLORASEPTIC SPRAY 177 ML BTL MM PRN (18:15)
[2018-06-15] MEDS: AMLODIPINE BESYLATE 10 MG TAB PO SCH (20:10)
[2018-06-16] VITALS (7 sets, daily range): BP systolic 136–150; BP diastolic 83–94
[2018-06-16 05:19] LABS: BASOPHILS % 0.5 % (0.0-1.0); EOSINOPHILS # (AUTO) 0.6 (0.0-0.4); EOSINOPHILS % 6.7 % (0.0-6.0); HEMATOCRIT 33.5 % (38.2-49.6); HEMOGLOBIN 11.7 g/dL (14.0-18.0); LYMPHOCYTES # (AUTO) 0.8 (1.0-3.2); LYMPHOCYTES % 9.4 % (18.0-39.1); MEAN CORPUSCULAR HEMOGLOBIN 31.5 pg (28-32); MEAN CORPUSCULAR HGB CONC 34.9 g/dL (31-35); MEAN CORPUSCULAR VOLUME 90.3 fL (81-99); MONOCYTES # (AUTO) 0.8 (0.2-0.8); MONOCYTES % 9.6 % (4.4-11.3); NEUTROPHILS # (AUTO) 6.2 (2.1-6.9); NEUTROPHILS % 73.3 % (38.7-80.0); PLATELET COUNT 255 x10e3/uL (140-360); RED BLOOD COUNT 3.71 x10e6/uL (4.3-5.7); RED CELL DISTRIBUTION WIDTH 12.1 % (11.7-14.4)
[2018-06-16] MEDS: ACETAMINOPHEN 325 MG TAB PO PRN (05:30)
[2018-06-16 05:35] LABS: ANION GAP 15.4 mmol/L (8-16); BLOOD UREA NITROGEN 11 mg/dL (7-26); BUN/CREATININE RATIO 10 (6-25); CALCIUM 8.5 mg/dL (8.4-10.2); CARBON DIOXIDE 24 mmol/L (22-29); CHLORIDE 100 mmol/L (98-107); CREATININE, SERUM 1.08 mg/dL (0.72-1.25); EST GLOMERULAR FILTRATION RATE > 60 ML/MIN (60-); GLUCOSE 117 mg/dL (74-118); MAGNESIUM 2.4 MG/DL (1.3-2.1); POTASSIUM 3.4 mmol/L (3.5-5.1); SODIUM 136 mmol/L (136-145)
[2018-06-16] MEDS: PIPER-TAZ 3.375 GM 50 ML IV SCH ×3 (06:00→22:02)
[2018-06-16] MEDS ORDERED: POTASSIUM CHLORIDE 20 MEQ TAB CR PO STA (07:36)
[2018-06-16] MEDS: DOCUSATE SODIUM 100 MG CAP PO SCH ×2 (09:01→16:40)
[2018-06-16] MEDS: VANCOMYCIN 1GM/NS 250 ML 250 ML IV SCH ×2 (09:01→20:10)
[2018-06-16] MEDS: FAMOTIDINE 20 MG TAB PO SCH ×2 (09:01→16:40)
[2018-06-16] MEDS: HYDROCHLOROTHIAZIDE 25 MG TAB PO SCH (09:02)
[2018-06-16] MEDS: OYST-CAL-D 500MG TABLET PO SCH ×2 (09:02→16:40)
[2018-06-16] MEDS: AMLODIPINE BESYLATE 10 MG TAB PO SCH (09:06)
--- NOTE | 2018-06-16 09:19 | Diagnostic Imaging Report ---
EXAMINATION: CHEST SINGLE (PORTABLE) COMPARISON: CT chest 06/14/2018, chest x-ray 06/12/2018 INDICATION: Chest tube placement, pneumothorax follow-up DISCUSSION: Frontal view of the chest obtained at 0853 hours. HEART AND MEDIASTINUM: The cardiomediastinal silhouette is unremarkable. LINES: Thin bore right chest tube is in the medial aspect of the right hemithorax. LUNGS/PLEURA: There is discoid atelectasis in the base of the right lung. This is immediately superimposed on pneumoperitoneum from recent nephrectomy. The pneumothorax identified on the June 14 x-ray is no longer visualized. The left lung is clear. Pulmonary vascular markings are normal. BONES AND SOFT TISSUES: No focal osseous lesion. Pneumoperitoneum is smaller. IMPRESSION: No conclusive evidence of pneumothorax. Right chest tube as described above. Right basilar atelectasis. Smaller pneumoperitoneum. Signed by: Dr. Khris Garcia MD on 06/16/2018 9:16 AM
--- NOTE | 2018-06-16 10:55 | Consultation ---
PULMONARY CONSULTATION DATE OF CONSULTATION REASON FOR CONSULTATION: Pneumothorax. HISTORY OF PRESENT ILLNESS: Mr. Phillips is a 47-year-old male who underwent right-sided nephrectomy by Dr. Wakefield. Patient has a history of renal mass and hematuria. During the surgery, the patient's rib has to be removed and he developed pneumothorax, so a small chest tube was placed. He is currently denying any complaints of chest pain or shortness of breath. He has no air leak. He works in the [employer]. He does [employer] for the profession. He smokes off and on for the last 20+ years. He denies any chest pain, nausea, vomiting, or diarrhea. REVIEW OF SYSTEMS: Negative except as in HPI. PAST MEDICAL HISTORY: None. PAST SURGICAL HISTORY: Tonsillectomy. FAMILY HISTORY/SOCIAL HISTORY: Occasional smoker for 15 to 20 years. PHYSICAL EXAMINATION VITAL SIGNS: Temperature 100, pulse of 188, blood pressure 148/88, respiratory rate of 18, and O2 sat 96%. HEENT: Head is atraumatic and normocephalic. NECK: Supple. CHEST: Clear to auscultation bilaterally. The right-sided chest tube in second intercostal space. No more air leak. HEART: S1, S2 audible. ABDOMEN: Soft, nontender, and nondistended. EXTREMITIES: No pedal edema. NEUROLOGIC: Awake and alert. LABORATORY DATA: Reviewed. X-RAY: Chest x-ray, I have reviewed the films. This venue was not much visible on the chest x-ray and he underwent a CT chest which showed small right-sided pneumo and a CT-guided chest tube was placed. CT also showed right lower lobe atelectasis versus consolidation. ASSESSMENT AND PLAN: Mr. Alan Rivero is a 47-year-old male who had a pneumothorax post-nephrectomy. Currently, there is no air leak. Chest CT and chest x-ray on June 14, 2018 showed pneumothorax, but there is no repeat chest x-ray. I will repeat a chest x-ray today and hopefully tomorrow if there is no air leak then chest tube can be removed. Right lower lobe consolidation. Patient is already on Zosyn which will be continued for pneumonia. Discussed with patient's at bedside in detail. Job#: [id number] ESTRELLA
[2018-06-17] VITALS (8 sets, daily range): BP systolic 116–128; BP diastolic 70–88
[2018-06-17 05:29] LABS: BASOPHILS % 0.5 % (0.0-1.0); EOSINOPHILS # (AUTO) 0.9 (0.0-0.4); EOSINOPHILS % 10.7 % (0.0-6.0); HEMATOCRIT 35.9 % (38.2-49.6); HEMOGLOBIN 12.4 g/dL (14.0-18.0); LYMPHOCYTES # (AUTO) 1.3 (1.0-3.2); LYMPHOCYTES % 16.8 % (18.0-39.1); MEAN CORPUSCULAR HEMOGLOBIN 31.4 pg (28-32); MEAN CORPUSCULAR HGB CONC 34.5 g/dL (31-35); MEAN CORPUSCULAR VOLUME 90.9 fL (81-99); MONOCYTES # (AUTO) 0.9 (0.2-0.8); MONOCYTES % 11.8 % (4.4-11.3); NEUTROPHILS # (AUTO) 4.8 (2.1-6.9); NEUTROPHILS % 59.8 % (38.7-80.0); PLATELET COUNT 299 x10e3/uL (140-360); RED BLOOD COUNT 3.95 x10e6/uL (4.3-5.7); RED CELL DISTRIBUTION WIDTH 12.1 % (11.7-14.4)
[2018-06-17] MEDS: PIPER-TAZ 3.375 GM 50 ML IV SCH ×3 (05:33→21:52)
[2018-06-17 05:50] LABS: ANION GAP 15.7 mmol/L (8-16); BLOOD UREA NITROGEN 12 mg/dL (7-26); BUN/CREATININE RATIO 10 (6-25); CALCIUM 9.6 mg/dL (8.4-10.2); CARBON DIOXIDE 28 mmol/L (22-29); CHLORIDE 97 mmol/L (98-107); EST GLOMERULAR FILTRATION RATE > 60 ML/MIN (60-); GLUCOSE 126 mg/dL (74-118); MAGNESIUM 2.4 MG/DL (1.3-2.1); POTASSIUM 3.7 mmol/L (3.5-5.1); SODIUM 137 mmol/L (136-145)
--- NOTE | 2018-06-17 06:27 | Diagnostic Imaging Report ---
EXAM: CHEST SINGLE (PORTABLE), AP 1 view INDICATION: Pneumothorax COMPARISON: AP view of the chest June 16, 2018 FINDINGS: LINES/TUBES: Stable position right pleural pigtail catheter LUNGS: No consolidations or edema. PLEURA: No pneumothorax. HEART AND MEDIASTINUM: Stable appearance BONES AND SOFT TISSUES: Persistent moderate pneumoperitoneum. IMPRESSION: 1. No pneumothorax. 2. Persistent moderate pneumoperitoneum. Signed by: Dr. Filomena Tesfaye M.D. on 06/17/2018 6:24 AM
[2018-06-17] MEDS: VANCOMYCIN 1GM/NS 250 ML 250 ML IV SCH ×2 (08:33→20:16)
[2018-06-17] MEDS: OYST-CAL-D 500MG TABLET PO SCH ×2 (08:33→17:02)
[2018-06-17] MEDS: FAMOTIDINE 20 MG TAB PO SCH ×2 (08:33→17:02)
[2018-06-17] MEDS: HYDROCHLOROTHIAZIDE 25 MG TAB PO SCH (08:33)
[2018-06-17] MEDS: DOCUSATE SODIUM 100 MG CAP PO SCH ×2 (08:33→17:02)
[2018-06-17] MEDS: AMLODIPINE BESYLATE 10 MG TAB PO SCH (08:33)
--- NOTE | 2018-06-17 15:54 | Diagnostic Imaging Report ---
EXAM: CHEST SINGLE (PORTABLE), AP 1 view COMPARISON: Chest radiograph 06/17/18 at 5 AM. FINDINGS: LINES/TUBES: Stable position right pleural pigtail catheter LUNGS AND PLEURA: Moderate lung volumes. No evidence of lobar consolidation or pulmonary edema. No evidence of pneumothorax. Small right pleural effusion, new since prior radiograph. HEART AND MEDIASTINUM: Stable cardiomediastinal silhouette. BONES AND SOFT TISSUES: No acute bony findings. UPPER ABDOMEN: There is moderate pneumoperitoneum, slightly decreased from prior radiograph. IMPRESSION: No evidence of pneumothorax. Small right pleural effusion, which appears new since prior radiograph. Moderate pneumoperitoneum, which appears slightly decreased compared to the prior radiograph. Signed by: Dr. Damir Padilla MD on 06/17/2018 3:50 PM
--- NOTE | 2018-06-17 21:48 | Diagnostic Imaging Report ---
EXAMINATION: CHEST SINGLE (PORTABLE) INDICATION: Pneumothorax. COMPARISON: Chest radiograph 06/17/2018 at 1525 hours FINDINGS: AP view TUBES and LINES: Stable position of right pleural pigtail catheter. LUNGS: Lungs are well inflated. Mild right basilar atelectasis. There is no evidence of pneumonia or pulmonary edema. PLEURA: Stable trace right pleural effusion. No pneumothorax. HEART AND MEDIASTINUM: The cardiomediastinal silhouette is unremarkable. BONES AND SOFT TISSUES: No acute osseous lesion. Soft tissues are unremarkable. UPPER ABDOMEN: Stable pneumoperitoneum. IMPRESSION: 1. No evidence of pneumothorax. 2. Stable pneumoperitoneum. Signed by: DR. Jay Marinelli MD on 06/17/2018 9:45 PM
[2018-06-18] VITALS: BP 121/75
[2018-06-18 04:00] VITALS: BP 133/75
[2018-06-18 04:05] LABS: BASOPHILS # (AUTO) 0.1 (0.0-0.1); BASOPHILS % 0.6 % (0.0-1.0); EOSINOPHILS # (AUTO) 1.1 (0.0-0.4); EOSINOPHILS % 8.5 % (0.0-6.0); HEMATOCRIT 37.4 % (38.2-49.6); HEMOGLOBIN 12.9 g/dL (14.0-18.0); LYMPHOCYTES # (AUTO) 1.7 (1.0-3.2); LYMPHOCYTES % 13.2 % (18.0-39.1); MEAN CORPUSCULAR HEMOGLOBIN 31.1 pg (28-32); MEAN CORPUSCULAR HGB CONC 34.5 g/dL (31-35); MEAN CORPUSCULAR VOLUME 90.1 fL (81-99); MONOCYTES # (AUTO) 1.3 (0.2-0.8); MONOCYTES % 9.7 % (4.4-11.3); NEUTROPHILS # (AUTO) 8.8 (2.1-6.9); NEUTROPHILS % 67.7 % (38.7-80.0); PLATELET COUNT 372 x10e3/uL (140-360); RED BLOOD COUNT 4.15 x10e6/uL (4.3-5.7); RED CELL DISTRIBUTION WIDTH 12.1 % (11.7-14.4)
--- NOTE | 2018-06-18 04:14 | Diagnostic Imaging Report ---
EXAMINATION: CHEST SINGLE (PORTABLE) INDICATION: Chest tube, chest pressure. COMPARISON: 06/17/2018 at 2115 hours FINDINGS: AP view TUBES and LINES: Stable position of right pleural pigtail catheter. LUNGS: Lungs are well inflated. Mild right basilar atelectasis. There is no evidence of pneumonia or pulmonary edema. PLEURA: No pleural effusion or pneumothorax. HEART AND MEDIASTINUM: The cardiomediastinal silhouette is unremarkable. BONES AND SOFT TISSUES: No acute osseous lesion. Soft tissues are unremarkable. UPPER ABDOMEN: Free air under the right diaphragm appears increased from 06/17/2018 at 21:15 hrs, but similar to 06/17/2018 at 0542 hrs, likely unchanged in overall volume. IMPRESSION: 1. No evidence of pneumothorax. 2. Free air under the right diaphragm appears increased from 06/17/2018 at 21:15 hrs, but similar to 06/17/2018 at 0542 hrs, likely unchanged in overall volume. Signed by: DR. Jay Marinelli MD on 06/18/2018 4:11 AM
[2018-06-18 04:23] LABS: ANION GAP 15.2 mmol/L (8-16); BLOOD UREA NITROGEN 16 mg/dL (7-26); BUN/CREATININE RATIO 14 (6-25); CALCIUM 9.6 mg/dL (8.4-10.2); CARBON DIOXIDE 26 mmol/L (22-29); CHLORIDE 94 mmol/L (98-107); CREATININE, SERUM 1.17 mg/dL (0.72-1.25); EST GLOMERULAR FILTRATION RATE > 60 ML/MIN (60-); GLUCOSE 123 mg/dL (74-118); MAGNESIUM 2.1 MG/DL (1.3-2.1); POTASSIUM 3.2 mmol/L (3.5-5.1); SODIUM 132 mmol/L (136-145)
[2018-06-18] MEDS ORDERED: HYDROCODONE/APAP 5MG-325MG TAB PO ONE (05:30)
[2018-06-18] MEDS: PIPER-TAZ 3.375 GM 50 ML IV SCH ×2 (05:42→14:43)
[2018-06-18] MEDS ORDERED: TYLENOL # 31 EA PO (07:04)
[2018-06-18] MEDS ORDERED: ESIDRIX25 MG PO (07:04)
[2018-06-18] MEDS ORDERED: NORVASC10 MG PO (07:04)
[2018-06-18] MEDS ORDERED: LEVAQUIN500 MG PO (07:04)
[2018-06-18] MEDS ORDERED: Calcium Carbonate PO (07:04)
[2018-06-18] MEDS ORDERED: SIMETHICONE 80 MG CHEW PO PRN (07:30)
[2018-06-18] MEDS ORDERED: POTASSIUM CHLORIDE 20 MEQ TAB CR PO ONE (08:00)
[2018-06-18 08:21] VITALS: BP 116/73
[2018-06-18] MEDS: DOCUSATE SODIUM 100 MG CAP PO SCH ×2 (08:21→17:00)
[2018-06-18] MEDS: FAMOTIDINE 20 MG TAB PO SCH ×2 (08:21→17:12)
[2018-06-18] MEDS: AMLODIPINE BESYLATE 10 MG TAB PO SCH (08:21)
[2018-06-18] MEDS: HYDROCHLOROTHIAZIDE 25 MG TAB PO SCH (08:21)
[2018-06-18] MEDS: OYST-CAL-D 500MG TABLET PO SCH ×2 (08:21→17:00)
[2018-06-18] MEDS: VANCOMYCIN 1GM/NS 250 ML 250 ML IV SCH (08:21)
[2018-06-18] MEDS: SIMETHICONE 40 MG/0.6 ML BTL PO ONE ×2 (10:35→10:47)
[2018-06-18] MEDS ORDERED: SIMETHICONE 40 MG/0.6 ML BTL PO ONE (11:00)
[2018-06-18 11:05] VITALS: BP 116/73
--- NOTE | 2018-06-18 11:13 | Diagnostic Imaging Report ---
EXAM: CT Chest without contrast 06/18/2018 9:56 AM INDICATION: Evaluate chest tube and pneumothorax COMPARISON: Chest x-ray dated 06/17/[address] dated 06/14/2018 TECHNIQUE: Chest was scanned utilizing a multidetector helical scanner from the lung apex through the level of the adrenal glands without IV contrast. Coronal and sagittal reformations were obtained. Routine protocol was performed. Dose sparing technique was utilized. IV CONTRAST: None RADIATION DOSE: Total DLP: 780.08 mGy*cm Estimated effective dose: (DLP x 0.014 x size factor) mSv COMPLICATIONS: None FINDINGS: LINES/ TUBES: Right upper lobe anterior pigtail pleural catheter. LUNGS AND AIRWAYS: Improvement in the basilar right lung opacity and small effusion. PLEURA: Small right pleural effusion. HEART AND MEDIASTINUM: The thyroid gland is normal. No mediastinal, hilar or axillary lymphadenopathy. The heart is normal in size.. There is no pericardial effusion. UPPER ABDOMEN: Persistence of the pneumo peritoneum. Status post right nephrectomy with multiple clips and expected postoperative appearance. BONES: The visualized bony thorax is within normal limits. SOFT TISSUES: Unremarkable. IMPRESSION: 1. No evidence of a pneumothorax. 2. Improvement in the right basilar lung opacity. 3. Persistence of pneumoperitoneum. 4. Postoperative changes associated with a right nephrectomy. Signed by: Dr. Raimundo Cabral DO on 06/18/2018 11:10 AM
--- NOTE | 2018-06-18 12:02 | Diagnostic Imaging Report ---
PROCEDURE: A single AP view of the chest. COMPARISON: Patients [facility], IR, CHEST TUBE PLACEMENT, 06/14/2018, 13:30. Patients [facility], DX, CHEST SINGLE (PORTABLE), 06/18/2018, 3:39. INDICATIONS: PNEUMOTHORAX, CHEST TUBE FINDINGS: Lines/tubes: Right pigtail pleural chest tube. Lungs: Improvement in the right basilar atelectasis. Pleura: There is no pleural effusion or pneumothorax. Heart and mediastinum: The heart and the mediastinum are unremarkable. The pneumoperitoneum is decreased. Bones: No acute bony abnormality. IMPRESSION: 1. No evidence of a pneumothorax. 2. Decrease in the size of the pneumoperitoneum. 3. Improvement in the right basilar atelectasis. Raimundo Cabral D.O. Dictated by: Raimundo Cabral D.O. on 06/18/2018 at 12:11 Electronically approved by: Raimundo Cabral D.O. on 06/18/2018 at 12:11
[2018-06-18 14:06] VITALS: BP 121/73
--- NOTE | 2018-06-18 14:27 | Diagnostic Imaging Report ---
EXAM: CHEST TUBE REMOVAL CATH, PA and lateral DATE: 06/18/2018 1:00 PM Time stamp on exam: 2:03 PM INDICATION: Chest tube removal COMPARISON: CT chest 06/18/2018. FINDINGS: LINES/TUBES: The right-sided small bore chest tube was removed. Sterile dressing was placed. Upright chest was then performed. LUNGS: No consolidations or edema. PLEURA: No effusions or pneumothorax. HEART AND MEDIASTINUM: Normal size and contour. BONES AND SOFT TISSUES: No acute findings. OTHER: Again noted is the postoperative pneumoperitoneum. IMPRESSION: No acute thoracic abnormality. Signed by: Dr. Raimundo Cabral DO on 06/18/2018 2:23 PM
[2018-06-18 15:21] LABS: BASOPHILS # (AUTO) 0.1 (0.0-0.1); BASOPHILS % 0.4 % (0.0-1.0); EOSINOPHILS # (AUTO) 0.3 (0.0-0.4); EOSINOPHILS % 2.3 % (0.0-6.0); HEMATOCRIT 34.3 % (38.2-49.6); HEMOGLOBIN 11.8 g/dL (14.0-18.0); LYMPHOCYTES # (AUTO) 1.1 (1.0-3.2); LYMPHOCYTES % 8.8 % (18.0-39.1); MEAN CORPUSCULAR HEMOGLOBIN 31.5 pg (28-32); MEAN CORPUSCULAR HGB CONC 34.4 g/dL (31-35); MEAN CORPUSCULAR VOLUME 91.5 fL (81-99); MONOCYTES # (AUTO) 1.3 (0.2-0.8); MONOCYTES % 10.5 % (4.4-11.3); NEUTROPHILS # (AUTO) 9.6 (2.1-6.9); NEUTROPHILS % 77.5 % (38.7-80.0); PLATELET COUNT 346 x10e3/uL (140-360); RED BLOOD COUNT 3.75 x10e6/uL (4.3-5.7); RED CELL DISTRIBUTION WIDTH 12.1 % (11.7-14.4)
[2018-06-18 17:12] VITALS: BP 123/74
--- NOTE | 2018-06-18 17:25 | Discharge Summary ---
ADMISSION DIAGNOSES 1. Right renal mass. 2. Hypocalcemia. 3. Leukocytosis. 4. Anemia. 5. Hematuria. DISCHARGE DIAGNOSES 1. Right renal mass. 2. Hypocalcemia. 3. Leukocytosis. 4. Anemia. 5. Hematuria. 6. Status post right nephrectomy. 7. Status post chest tube placement and removal. HISTORY: The patient denies medical history. PAST SURGICAL HISTORY: Tonsillectomy. FAMILY HISTORY: The patient's uncles had a stroke. SOCIAL HISTORY: The patient admits to occasional alcohol use and smokes one pack of cigarettes per week for the last 15 to 20 years. He denies illicit drug use. A 47-year-old male found to have a right renal mass between November and February of 2018 after having images done at a [facility]. He was asymptomatic at the time, but the images were free so his whole family went. He was supposed to have a CAT scan on the day prior to admission, but he started having constant, stabbing right flank pain and came to the ER instead. He admits to hematuria that began yesterday. He denies dysuria and fever. Pain is improved with IV meds and worsened with movement. On admission, the patient had a CT of the abdomen that showed right heterogenous centrally necrotic mass arising from the right lower pole kidney suspicious for renal cell carcinoma, right perinephric stranding which could reflect inflammatory changes or potentially tumor involvement. The patient then had a CT of the chest that showed no evidence of metastatic disease. The patient went for the right nephrectomy and then had a chest x-ray afterwards that showed a pneumothorax. Urology then ordered a CT of the chest with chest tube placement. CT revealed 30% pneumothorax. At that point, pulmonology was consulted for management of the chest tube. After about 2 days of the chest tube, the patient had a repeat chest x-ray per pulmonology so he could pull the chest tube out, and the pneumothorax had resolved. Urine cultures negative. Blood culture negative. Vital signs stable. The patient afebrile. The patient will discharge home on home medicines plus Levaquin x7 days per urology, hydrochlorothiazide, Norvasc, Tylenol No. 3 and calcium carbonate. The patient and understand discharge instructions and agree to plan. They will follow up with urology as discussed and primary care in one to two weeks. Dictated by: Meryl Satinder, USER INTERFACE ARTIST MARGY DAMON MD Job#: [id number]
== END 2018-06-18 18:48 | disposition home or self-care (01) | DRG 700 ==
LOC: ER 07:26 → ERHOLD 13:09 → MED/SURG3 21:21 → MED/SURG 06-12 16:07
PROVIDERS: ADMIT Internal Medicine; ATTEND Internal Medicine
DX: N28.89 Other specified disorders of kidney and ureter (principal); E83.51 Hypocalcemia; D72.829 Elevated white blood cell count, unspecified; D64.9 Anemia, unspecified
CPT/HCPCS: 32552; 32557; 36415; 71045; 71046; 71250; 71260; 74178; 74420; 74470; 80048; 80053; 80076; 80202; 81001; 82607; 82728; 82746; 82948; 83540; 83735; 83880; 84466; 85025; 85610; 85730; 86850; 86900; 87040; 87086; 88307; 93005; 99284; C1729; C1769; J0360; J0610; J0690; J1100; J1885; J2001; J2250; J2270; J2405; J2543; J3370; J7030; J7050; Q9967

== ENCOUNTER → 2018-07-09 | Outpatient (CLI) | payer OTHER ==
[~2018-07-09] MED LIST: CYCLOBENZAPRINE10 MG PO; Calcium Carbonate PO; ESIDRIX25 MG PO; LEVAQUIN500 MG PO; MELOXICAM7.5 MG PO; NORVASC10 MG PO; TYLENOL # 31 EA PO
--- NOTE | 2018-07-09 12:33 | Diagnostic Imaging Report ---
EXAMINATION: PA and lateral views of the chest. COMPARISON: 06/18/2018 CLINICAL HISTORY: Renal cell carcinoma DISCUSSION: The lungs are well-inflated. No focal airspace consolidation, pleural effusion, or pneumothorax. Cardiomediastinal contour and pulmonary vasculature are within normal limits. No acute osseous abnormality. Surgical clips project over the vertebral column on the lateral radiograph compatible with history of nephrectomy. IMPRESSION: No acute cardiopulmonary abnormalities. Signed by: Dr. Nick Corcoran M.D. on 07/09/2018 12:29 PM
--- NOTE | 2018-07-09 14:32 | Diagnostic Imaging Report ---
EXAMINATION: Scrotal ultrasound CLINICAL INDICATION: Right testicular pain for one month, epididymitis. COMPARISON: None.. TECHNIQUE: Grayscale and color Doppler evaluation of the scrotum was performed in transverse and longitudinal planes. FINDINGS: The right testicle measures 4.2 x 2.2 x 2.7 cm. There are no masses or calcifications.. The right epididymis measures 1.4 x 1.1 x 1.4 cm. No nodules or masses.. Trace right hydrocele. No varicocele. There is normal arterial and venous flow to the right testicle, without evidence of torsion. The left testicle measures 3.9 x 1.9 x 2.7 cm. There are no masses or calcifications.. The left epididymis measures 0.9 x 0.7 x 0.8 cm. No nodules or masses.. There is no evidence of left hydrocele or varicocele. There is normal arterial and venous flow to the left testicle without evidence of torsion. The scrotum has a normal appearance, without focal lesions. Normal-appearing, normal-sized bilateral inguinal lymph nodes are noted, with normal fatty hilum, measuring 3.2 x 0.8 x 2.5 cm on the right and 1.8 x 2.6 x 0.8 cm on the left. Impression: 1. Normal bilateral testicular size and echogenicity. No focal lesions or increased vascularity. Normal arterial and venous flow, without evidence of torsion. 2. Normal bilateral epididymes, without focal lesions or increased flow. Signed by: Dr. Theodore Churchill M.D. on 07/09/2018 2:28 PM
== END ==
LOC: US 11:45
PROVIDERS: ATTEND Urology
DX: N45.1 Epididymitis (principal); C64.1 Malignant neoplasm of right kidney, except renal pelvis
CPT/HCPCS: 71046; 76870; 93976

== ENCOUNTER → 2018-10-04 | Outpatient (CLI) | payer OTHER ==
--- NOTE | 2018-10-04 16:11 | Diagnostic Imaging Report ---
EXAMINATION: PA and lateral views of the chest. COMPARISON: None CLINICAL HISTORY: Malignant neoplasm of the kidney DISCUSSION: Lines/tubes: None. Lungs: Lungs are well inflated. No consolidation or edema. Pleura: There is no pleural effusion or pneumothorax. Heart and mediastinum: Prominent heart size. Bones and soft tissues: No acute bony abnormalities. IMPRESSION: No acute cardiopulmonary abnormalities. Signed by: Dr. King Alvarez M.D. on 10/04/2018 4:08 PM
--- NOTE | 2018-10-04 16:19 | Diagnostic Imaging Report ---
EXAM: Renal Ultrasound INDICATION: Renal neoplasm. COMPARISON: None TECHNIQUE: Transverse and longitudinal images of the kidneys and bladder were obtained. FINDINGS: Right Kidney: Status post nephrectomy. Left Kidney: Length: Measures 12.3 x 6.9 x 4.9 cm Appearance: Normal echogenicity. Collecting system: No hydronephrosis Stones: None Cyst/Mass: None Bladder: Unremarkable in appearance. Left ureteral jet is seen. IMPRESSION: Status post right nephrectomy. Unremarkable left kidney without sonographic evidence of mass. Signed by: Dr. Damir Padilla MD on 10/04/2018 4:16 PM
--- NOTE | 2018-10-04 16:31 | Diagnostic Imaging Report ---
EXAMINATION: Testicular ultrasound with doppler CLINICAL INDICATION: Right testicular pain, epididymitis. COMPARISON: None.. TECHNIQUE: Grayscale and color Doppler evaluation of the bilateral testicles and scrotal structures was performed in transverse and longitudinal planes. FINDINGS: The right testicle measures 4.2 x 2.3 x 3.2 cm. There are no masses or calcifications.. The right epididymis measures 1.0 x 0.6 x 0.9 cm. A 2 mm simple cyst is noted in the right epididymis. Moderate right right hydrocele. Varicocele is present which increases on valsalva. There is normal Doppler flow to the right testicle. The left testicle measures 4.1 x 1.9 x 2.5 cm. There are no masses or calcifications.. The left epididymis measures 0.8 x 0.7 x 0.8 cm. There is no evidence of left hydrocele. Varicocele is present which increases on valsalva. There is normal Doppler flow to the left testicle. Benign appearing bilateral inguinal lymph nodes are noted. Impression: No sonographic evidence of testicular torsion or epididymitis. Moderate right hydrocele. Bilateral varicoceles. Signed by: Dr. Damir Padilla MD on 10/04/2018 4:27 PM
== END ==
LOC: RAD 14:09
PROVIDERS: ATTEND Urology
DX: C64.1 Malignant neoplasm of right kidney, except renal pelvis (principal); N45.1 Epididymitis; Z90.5 Acquired absence of kidney
CPT/HCPCS: 71046; 76770; 76870; 93976

== ENCOUNTER → 2018-12-26 | Outpatient (CLI) | payer OTHER ==
--- NOTE | 2018-12-26 17:05 | Diagnostic Imaging Report ---
EXAM: Renal Ultrasound INDICATION: Right renal malignancy. COMPARISON: Renal ultrasound 10/04/2018. TECHNIQUE: Transverse and longitudinal images of the kidneys and bladder were obtained. FINDINGS: Right Kidney: Status post right nephrectomy. No evidence of mass at the nephrectomy bed. Left Kidney: Length: Measures 12.6 x 7.2 x 4.2 cm. Renal cortex measures 2.3 cm. Appearance: Normal echogenicity. Collecting system: No hydronephrosis Stones: None Cyst/Mass: None Bladder: Unremarkable in appearance. Left ureteral jet is present. Prevoid volume is 13.5 cc. Prostate: Measures 2.6 x 1.9 x 2.8 cm. Estimated volume of 7.4 cc. IMPRESSION: Status post right nephrectomy. Unremarkable left kidney without sonographic evidence of mass. Signed by: Dr. Damir Padilla MD on 12/26/2018 5:02 PM
--- NOTE | 2018-12-26 17:21 | Diagnostic Imaging Report ---
EXAMINATION: CHEST 2 VIEWS INDICATION: ^[id number] ^1630 ^Malignant neoplasm of right kidney, except renal pelvis COMPARISON: Chest radiograph 10/04/[address] chest 06/18/2018 FINDINGS: PA and lateral views TUBES and LINES: None. LUNGS: Lungs are well inflated. Lungs are clear. There is no evidence of pneumonia or pulmonary edema. PLEURA: No pleural effusion or pneumothorax. HEART AND MEDIASTINUM: Stable prominent heart size. BONES AND SOFT TISSUES: No acute osseous lesion. Soft tissues are unremarkable. UPPER ABDOMEN: No free air under the diaphragm. IMPRESSION: No acute thoracic abnormality. Signed by: Dr. Carmen Witt M.D. on 12/26/2018 5:18 PM
== END ==
LOC: US 16:05
PROVIDERS: ATTEND Urology
DX: C64.1 Malignant neoplasm of right kidney, except renal pelvis (principal)
CPT/HCPCS: 71046; 76770

== ENCOUNTER → 2019-03-26 | Outpatient (CLI) | payer OTHER ==
--- NOTE | 2019-03-26 16:48 | Diagnostic Imaging Report ---
Exam: Chest radiograph Clinical History: Renal cancer Comparison: December 26, 2018 Findings: The cardiomediastinal silhouette and lungs are normal. The regional skeleton and soft tissue are unremarkable. There is no evidence of pleural effusion or pneumothorax. Impression: No radiographic evidence of acute cardiopulmonary disease. Signed by: Dr. Cameron Foy MD on 03/26/2019 4:44 PM
--- NOTE | 2019-03-26 16:51 | Diagnostic Imaging Report ---
Renal ultrasound Clinical History: Renal neoplasm Comparison: December 26, 2018 Discussion: Sonographic evaluation of the kidneys is performed. The left kidney has normal size and cortical echogenicity. The left kidney measures 12.8 cm in length. There is no focal renal mass, hydronephrosis, or shadowing renal calculus. No perinephric fluid collection is seen. Survey images of the bladder demonstrate no abnormality. Impression: 1. Status post right nephrectomy, otherwise, unremarkable renal ultrasound. Signed by: Dr. Cameron Foy MD on 03/26/2019 4:48 PM
== END ==
LOC: US 15:24
PROVIDERS: ATTEND Urology
DX: C64.1 Malignant neoplasm of right kidney, except renal pelvis (principal)
CPT/HCPCS: 71046; 76770

== ENCOUNTER → 2019-06-30 | Outpatient (CLI) | payer OTHER ==
--- NOTE | 2019-06-30 08:52 | Diagnostic Imaging Report ---
Chest, PA and lateral. History: History of kidney cancer. Comparison: 03/26/2019. Discussion: The cardiomediastinal silhouette and pulmonary vasculature are within normal limits. The lungs are clear without evidence of consolidation or effusion. There are no acute osseous abnormalities. IMPRESSION: No radiographic evidence of acute cardiopulmonary abnormality. Signed by: Macho Carlson MD on 06/30/2019 8:49 AM
--- NOTE | 2019-06-30 08:59 | Diagnostic Imaging Report ---
Ultrasound of the Kidneys, 06/30/2019. Clinical History: History of right renal cancer. Comparison: 03/26/2019 Discussion: Sonographic evaluation of the kidneys is performed. Right kidney: Surgically absent. Left kidney: 13.1 cm in length, normal in size, with cortical thickness of 1.8 cm. Normal cortical echogenicity. No mass. No shadowing calculus. No hydronephrosis. Limited Doppler evaluation demonstrates normal color Doppler flow within the left renal hilus. Fluid: No perinephric fluid. Bladder: Unremarkable. IMPRESSION: 1. Unremarkable sonographic evaluation of the left kidney. 2. Status post right nephrectomy.. Signed by: Macho Carlson MD on 06/30/2019 8:56 AM
== END ==
LOC: US 08:06
PROVIDERS: ATTEND Urology
DX: C64.1 Malignant neoplasm of right kidney, except renal pelvis (principal)
CPT/HCPCS: 71046; 76770

== ENCOUNTER → 2019-12-19 | Outpatient (CLI) | payer OTHER ==
--- NOTE | 2019-12-19 14:36 | Diagnostic Imaging Report ---
Exam: Chest radiograph Clinical History: Gross hematuria Findings: The cardiomediastinal silhouette and lungs are normal. The regional skeleton and soft tissue are unremarkable. There is no evidence of pleural effusion or pneumothorax. Impression: No radiographic evidence of acute cardiopulmonary disease. Signed by: Dr. Cameron Foy MD on 12/19/2019 2:32 PM
--- NOTE | 2019-12-19 15:45 | Diagnostic Imaging Report ---
Renal ultrasound Clinical History: Gross hematuria Discussion: Sonographic evaluation of the kidneys is performed. The right kidney normal size and cortical echogenicity. The left kidney has been removed. The left kidney measures 13.9 cm in length. There is no focal renal mass, hydronephrosis, or shadowing renal calculus. No perinephric fluid collection is seen. Survey images of the bladder demonstrate no abnormality. Impression: 1. Status post right nephrectomy. Otherwise, unremarkable renal ultrasound. Signed by: Dr. Cameron Foy MD on 12/19/2019 3:42 PM
== END ==
LOC: US 14:06
PROVIDERS: ATTEND Urology
DX: R31.0 Gross hematuria (principal)
CPT/HCPCS: 71046; 76770

== ENCOUNTER → 2020-06-21 | Outpatient (CLI) | payer OTHER ==
--- NOTE | 2020-06-21 14:40 | Diagnostic Imaging Report ---
X-ray chest 2 views History: Malignant neoplasm of the right kidney Comparison: None Findings: Central airways: Unremarkable. Heart: Normal size. Mediastinal silhouettes: Unremarkable. Pleural spaces: No pleural effusion or pneumothorax. Lungs: No significant focal lung disease. Skeletal structures: Unremarkable. Extrathoracic soft tissues: Surgical seth in the upper abdomen posteriorly. Impression: No significant abnormality on this exam. Signed by: Jg Beckford MD on 06/21/2020 2:37 PM
--- NOTE | 2020-06-21 15:46 | Diagnostic Imaging Report ---
Renal ultrasound Comparison: 12/19/2019 Clinical History: Malignant neoplasm right kidney Technique: Sonographic evaluation of the kidneys was performed. Multiple images were submitted for interpretation, using a low-frequency curved transducer. Right kidney: Surgically absent. No mass or fluid in the renal bed. Left kidney: The kidney measures 12.4 x 6.5 x 5.6 cm. The cortical echogenicity is within normal limits. The cortex measures 2.0 cm. There is no evidence of a focal mass. There is no evidence of hydronephrosis. There is no evidence of a shadowing stone. There is no evidence of a cyst. There is no evidence of a perinephric fluid collection. Flow is visualized to the left kidney. Survey images of the bladder demonstrate no abnormality. Postvoid volume is 0 cc. The prostate is visualized. The volume is 39 cc. This is mildly elevated. Impression: No mass or fluid in the right renal bed post nephrectomy. Left kidney unremarkable. Borderline enlargement of the prostate. Signed by: Jg Beckford MD on 06/21/2020 3:43 PM
== END ==
LOC: US 14:04
PROVIDERS: ATTEND Urology
DX: C64.1 Malignant neoplasm of right kidney, except renal pelvis (principal)
CPT/HCPCS: 71046; 76770

== ENCOUNTER → 2022-12-11 | Outpatient (CLI) | payer OTHER | LOC: US 11:54 | PROVIDERS: ATTEND Urology | DX: C64.1 Malignant neoplasm of right kidney, except renal pelvis (principal); I86.1 Scrotal varices | CPT/HCPCS: 71046; 76770; 76870; 93976 ==

== ENCOUNTER → 2023-01-17 | Day surgery (SDC) | payer OTHER ==
[2023-01-16 14:22] LABS: BASOPHILS # (AUTO) 0.1 (0.0-0.1); BASOPHILS % 0.8 % (0.0-1.0); EOSINOPHILS # (AUTO) 0.4 (0.0-0.4); EOSINOPHILS % 5.8 % (0.0-6.0); HEMATOCRIT 39.5 % (38.2-49.6); HEMOGLOBIN 13.3 g/dL (14.0-18.0); LYMPHOCYTES # (AUTO) 1.9 (1.0-3.2); LYMPHOCYTES % 25.4 % (18.0-39.1); MEAN CORPUSCULAR HEMOGLOBIN 31.1 pg (28-32); MEAN CORPUSCULAR HGB CONC 33.7 g/dL (31-35); MEAN CORPUSCULAR VOLUME 92.3 fL (81-99); MONOCYTES # (AUTO) 0.7 (0.2-0.8); MONOCYTES % 9.9 % (4.4-11.3); NEUTROPHILS # (AUTO) 4.3 (2.1-6.9); NEUTROPHILS % 57.8 % (38.7-80.0); PLATELET COUNT 333 x10e3/uL (140-360); RED BLOOD COUNT 4.28 x10e6/uL (4.3-5.7); RED CELL DISTRIBUTION WIDTH 12.6 % (11.7-14.4)
[2023-01-16 14:34] LABS: ALBUMIN 3.8 g/dL (3.5-5.0); ALBUMIN/GLOBULIN RATIO 1.2 (0.8-2.0); CALCIUM 9.3 mg/dL (8.4-10.2); CREATININE, SERUM 0.98 mg/dL (0.72-1.25)
[~2023-01-17] MED LIST changes: +ACETAMINOPHEN 1000 MG/100 ML 100 ML IV ONE; +AMLODIPINE BESY10 MG PO; +BUPIVACAINE HCL 0.5% INJ 30 ML VIAL INJ ONE; +CEFAZOLIN SODIUM 2 GM ONE; +DOXAZOSIN MESYLA2 MG PO; +EPHEDRINE SULFATE INJ 50 MG/ML VIAL ONE; +FAMOTIDINE20 MG PO; +FENOFIBRATE145 MG PO; +FENTANYL CITRATE/PF 100MCG/2 ML INJ ONE; +FINASTERIDE5 MG PO; +LACTATED RINGER'S 1,000 ML ONE; +LIDOCAINE HCL 2% LOCAL INJ 5 ML SDV VIAL INJ ONE; +LOSARTAN POTAS100 MG PO; +MAGNESIUM OXID400 MG PO; +METOCLOPRAMIDE HCL 10 MG/2ML VIAL ONE; +OMEGA 3 1,0001 EACH PO; +POVIDONE IODINE 0.05% 0.05 % ML PO ONE; +PROPOFOL IV EMULSION 10 MG/ML 20 ML VIAL ONE; +SEVOFLURANE INHAL SOLN 250 ML PEN BTL ONE; +TERBINAFINE HC250 MG PO; +VIT D PO
[2023-01-17 09:07] VITALS: TEMP 97.1
[2023-01-17 11:40] VITALS: BP 127/80; PULSE 70; RESP 18; O2SAT 97
== END | disposition home or self-care (01) ==
LOC: OR 06:41
PROVIDERS: ATTEND Urology
DX: N43.3 Hydrocele, unspecified (principal); I10 Essential (primary) hypertension; E78.5 Hyperlipidemia, unspecified; K21.9 Gastro-esophageal reflux disease without esophagitis; Z90.5 Acquired absence of kidney; Z01.812 Encounter for preprocedural laboratory examination; Z79.899 Other long term (current) drug therapy; Z87.891 Personal history of nicotine dependence
CPT/HCPCS: 36415; 55040; 80053; 85025; 88304; 93005; J0131; J2001; J2704; J2765; J3010; J7121

== ENCOUNTER → 2023-09-04 | Outpatient (REF) | payer OTHER ==
[~2023-09-04] MED LIST changes: -ACETAMINOPHEN 1000 MG/100 ML 100 ML IV ONE; -BUPIVACAINE HCL 0.5% INJ 30 ML VIAL INJ ONE; -CEFAZOLIN SODIUM 2 GM ONE; -EPHEDRINE SULFATE INJ 50 MG/ML VIAL ONE; -FENTANYL CITRATE/PF 100MCG/2 ML INJ ONE; +GADOBENATE DIMEGLUMINE 1 ML IV ONE; +HYDROXYZINE HCL25 MG PO; -LACTATED RINGER'S 1,000 ML ONE; -LIDOCAINE HCL 2% LOCAL INJ 5 ML SDV VIAL INJ ONE; -METOCLOPRAMIDE HCL 10 MG/2ML VIAL ONE; -POVIDONE IODINE 0.05% 0.05 % ML PO ONE; -PROPOFOL IV EMULSION 10 MG/ML 20 ML VIAL ONE; -SEVOFLURANE INHAL SOLN 250 ML PEN BTL ONE
== END ==
LOC: MRI 08:26
PROVIDERS: ATTEND Internal Medicine
DX: Z51.12 Encounter for antineoplastic immunotherapy (principal); C64.1 Malignant neoplasm of right kidney, except renal pelvis; C79.72 Secondary malignant neoplasm of left adrenal gland; E78.5 Hyperlipidemia, unspecified; I10 Essential (primary) hypertension
CPT/HCPCS: 70553; A9577